=== PATIENT | female | born 1985 | race Caucasian/White ===

== ENCOUNTER 2024-06-01 21:28 | Emergency (ER) | payer SELFPAY ==
[2024-06-01] MEDS: HYDROmorphone 1 MG/ML Syringe IM ONE (22:09)
== END 2024-06-01 23:43 | disposition home or self-care (01) ==
LOC: JP.ED 21:28
DX: S43.102A Unspecified dislocation of left acromioclavicular joint, initial encounter (principal); Z88.8 Allergy status to other drugs, medicaments and biological substances; Z79.899 Other long term (current) drug therapy; Z87.891 Personal history of nicotine dependence; X58.XXXA Exposure to other specified factors, initial encounter
CPT/HCPCS: 73030; 96372; 99284; J1170